=== PATIENT | male | born 1965 | race Two or more races ===

== ENCOUNTER 2025-02-01 23:36 | Emergency (ER) | payer MEDICARE, MEDICAID ==
[~2025-02-01] VITALS: Ht 177.8 cm; Wt 113.4 kg
[2025-02-02] MEDS ORDERED: LIDOCAINE 1%-EPI 1:100,000 20 ML VIAL ONE (00:20)
[2025-02-02] MEDS ORDERED: ACETAMINOPHEN 325 MG TABLET ONE (00:31)
[2025-02-02] MEDS ORDERED: TDAP [DIPH/PERTUSSIS/TET] 0.5 ML VIAL IM ONE (00:32)
[2025-02-02 00:36] VITALS: TEMP 98.6
[2025-02-02] MEDS: ACETAMINOPHEN 325 MG TABLET PO ONE (00:36)
[2025-02-02] MEDS: LIDOCAINE 1%-EPI 1:100,000 20 ML VIAL TP ONE (00:57)
[2025-02-02] MEDS: TDAP [DIPH/PERTUSSIS/TET] 0.5 ML VIAL IM ONE (01:05)
[2025-02-02 01:08] VITALS: BP 104/73; O2SAT 100
== END 2025-02-02 04:26 ==
LOC: ER 23:39
DX: S81.811A Laceration without foreign body, right lower leg, initial encounter (principal); E11.9 Type 2 diabetes mellitus without complications; F20.9 Schizophrenia, unspecified; N40.0 Benign prostatic hyperplasia without lower urinary tract symptoms; Z87.440 Personal history of urinary (tract) infections; Z86.79 Personal history of other diseases of the circulatory system; W23.1XXA Caught, crushed, jammed, or pinched between stationary objects, initial encounter; Y93.89 Activity, other specified; Y92.89 Other specified places as the place of occurrence of the external cause; Y99.8 Other external cause status
CPT/HCPCS: 12004; 73590; 90471; 90715; 99283; J3490